=== PATIENT | female | born 1950 | race Caucasian/White ===

== ENCOUNTER 2021-09-08 14:09 | Inpatient (IN) | payer MEDICARE, OTHER ==
[2021-09-08 16:17] LABS: ESTIMATED GFR 60 mL/min (>60)
[2021-09-08] MEDS ORDERED: cefTRIAXone 1 GM in Sodium Chloride 0.9% 50 ML IV ONE (17:46)
[2021-09-08] MEDS ORDERED: Sodium Chloride 0.9% 1,000 ML IV SCH (18:00)
[2021-09-08] MEDS ORDERED: Ondansetron 4 MG/2 ML SDV IV PRN (18:46)
[2021-09-08] MEDS ORDERED: Sodium Chloride 0.9% 10 ML Syringe FLUSH PRN (18:46)
[2021-09-08] MEDS: Acetaminophen 325 MG Tab PO PRN (19:48)
[2021-09-08] MEDS: Enoxaparin 40 MG/0.4 ML Syringe SUBCUT SCH (20:58)
[2021-09-08] MEDS: Gabapentin 100 MG Cap PO SCH (20:58)
[2021-09-08] MEDS: traZODone 50 MG Tab PO SCH (20:58)
[2021-09-08] MEDS: Sodium Chloride 0.9% 1,000 ML IV SCH (22:36)
[2021-09-09] MEDS: Acetaminophen 325 MG Tab PO PRN ×5 (03:03→23:43)
[2021-09-09] MEDS: Sodium Chloride 0.9% 1,000 ML IV SCH (06:27)
[2021-09-09] MEDS: Gabapentin 100 MG Cap PO SCH ×3 (08:48→20:24)
[2021-09-09] MEDS: Pantoprazole 40 MG Tab.CR PO SCH (08:48)
[2021-09-09] MEDS: Enoxaparin 40 MG/0.4 ML Syringe SUBCUT SCH (08:48)
[2021-09-09] MEDS: Furosemide 20 MG Tab PO SCH (08:49)
[2021-09-09] MEDS: Sertraline 50 MG Tab PO SCH (08:49)
[2021-09-09] MEDS ORDERED: Non-Formulary Medication 1 Each (Pantoprazole [Pantoprazole] 20 MG Tab.Dr) PO SCH (09:00)
[2021-09-09] MEDS ORDERED: cefTRIAXone 1 GM in Sodium Chloride 0.9% 50 ML IV SCH (18:00)
[2021-09-09] MEDS: traZODone 50 MG Tab PO SCH (20:24)
[2021-09-10] MEDS: Acetaminophen 325 MG Tab PO PRN ×2 (03:49→21:31)
[2021-09-10] MEDS: Pantoprazole 40 MG Tab.CR PO SCH (08:03)
[2021-09-10] MEDS: Gabapentin 100 MG Cap PO SCH ×3 (08:03→20:59)
[2021-09-10] MEDS: Furosemide 20 MG Tab PO SCH (08:03)
[2021-09-10] MEDS: Sertraline 50 MG Tab PO SCH ×2 (08:04→08:14)
[2021-09-10] MEDS: Enoxaparin 40 MG/0.4 ML Syringe SUBCUT SCH (11:10)
[2021-09-10] MEDS: Cephalexin 250 MG Cap PO SCH ×2 (16:52→20:59)
[2021-09-10] MEDS: traZODone 50 MG Tab PO SCH (20:59)
[2021-09-10] MEDS ORDERED: Gabapentin 100 MG Cap PO ONE (22:34)
[2021-09-11] MEDS: Cephalexin 250 MG Cap PO SCH ×2 (04:36→09:19)
[2021-09-11 09:03] VITALS: PULSE 77
[2021-09-11] MEDS: Pantoprazole 40 MG Tab.CR PO SCH (09:14)
[2021-09-11] MEDS: Gabapentin 100 MG Cap PO SCH (09:18)
[2021-09-11] MEDS: Enoxaparin 40 MG/0.4 ML Syringe SUBCUT SCH (09:18)
[2021-09-11] MEDS: Sertraline 50 MG Tab PO SCH (09:19)
[2021-09-11] MEDS: Furosemide 20 MG Tab PO SCH (09:35)
[2021-09-11 09:50] VITALS: BP 160/66
[2021-09-12 13:12] LABS: BABESIA MICROTI IGG <1:10 (Neg:<1:10); BABESIA MICROTI IGM <1:10 (Neg:<1:10)
== END 2021-09-11 14:05 | disposition home or self-care (01) | DRG 872 ==
LOC: JP.ED 14:09 → JP.MS 18:03
PROVIDERS: ADMIT Hospitalist; ATTEND Internal Medicine
DX: A41.9 Sepsis, unspecified organism (principal); W06.XXXA Fall from bed, initial encounter; N39.0 Urinary tract infection, site not specified; H54.7 Unspecified visual loss; G89.29 Other chronic pain; M54.9 Dorsalgia, unspecified; Z96.659 Presence of unspecified artificial knee joint; Z20.822 Contact with and (suspected) exposure to COVID-19; Z79.899 Other long term (current) drug therapy
CPT/HCPCS: 80053; 81001; 83605; 84145; 85025; 86140; 86618 ×2; 86666 ×2; 86753 ×2; 87040; U0002; 36415; 80048; 97110-GP; 97161-GP; 97530-GP; 97535-GP; 99284; A9270-GY; J0696; J1650; J3490; J7030